=== PATIENT | male | born 1980 | race Caucasian/White ===

== ENCOUNTER 2018-06-30 01:25 | Emergency (ER) | payer MEDICAID ==
[~2018-06-30] VITALS: Ht 193 cm; Wt 64.7 kg
[~2018-06-30 01:25] MED LIST: ALBU8.5H5 INH; ASPI-496 PO; GABA300C10 PO; GABA800T PO; HYDR25CA94 PO; LEVO750T26 PO; NITR0.4T28 SL
--- NOTE | 2018-06-30 01:41 | NUR ---
PT STATED "I WAS USING BATHROOM AT [facility] AND URINATED BLOOD. PT STATED HE WEARS DEPENDS FOR URINARY INCONTINENCE, DENIES PAIN WITH URINATION . PT UP TO RR WITH STEADY GAIT, URINE CUP PROVIDED FOR SAMPLE
[2018-06-30 01:49] VITALS: BP 115/80
[2018-06-30] MEDS ORDERED: ASPI-515 PO (01:50)
--- NOTE | 2018-06-30 01:52 | NUR ---
urine sample sent
[2018-06-30 02:07] LABS: MICROSCOPIC AUTO
[2018-06-30 02:08] LABS: CULTURE INDICATED? YES
== END 2018-06-30 02:56 | disposition home or self-care (01) ==
LOC: ED 02:30
DX: N30.01 Acute cystitis with hematuria (principal); R31.0 Gross hematuria; F17.200 Nicotine dependence, unspecified, uncomplicated
CPT/HCPCS: 81001; 87086; 99283